=== PATIENT | female | born 1990 | race American Indian/Alaskan Native ===

== ENCOUNTER 2021-02-22 19:55 | Emergency (ER) | payer MEDICAID, OTHER ==
[2021-02-22 21:20] LABS: Basophils % (Auto) 0.4 % (0.0-1.8); Eosinophils # (Auto) 0.1 K/mm3 (0.0-0.4); Eosinophils % (Auto) 1.1 % (0.0-4.3); Hematocrit 39.9 % (30.3-42.9); Hemoglobin 13.8 gm/dl (10.1-14.3); Lymphocytes # (Auto) 3.1 K/mm3 (1.2-5.4); Lymphocytes % (Auto) 30.3 % (13.4-35.0); Mean Corpuscular HGB Conc 35 % (30-34); Mean Corpuscular Volume 94 fl (79-97); Monocytes # (Auto) 0.7 K/mm3 (0.0-0.8); Monocytes % (Auto) 6.8 % (0.0-7.3); Platelet Count 296 K/mm3 (140-440); Red Blood Count 4.23 M/mm3 (3.65-5.03); Red Cell Distribution Width 12.8 % (13.2-15.2)
[2021-02-22 21:33] LABS: Alanine Aminotransferase 14 units/L (7-56); Albumin 4.4 g/dL (3.9-5); Blood Urea Nitrogen 10 mg/dL (7-17); Calcium 9.3 mg/dL (8.4-10.2); Hemolysis Index 32
[2021-02-22 21:39] LABS: BUN/Creatinine Ratio 17
[2021-02-22 21:55] VITALS: BP 174/80
--- NOTE | 2021-02-22 22:00 | XRay Report ---
CHEST 2 VIEWS INDICATION / CLINICAL INFORMATION: Chest Pain. COMPARISON: None available. FINDINGS: SUPPORT DEVICES: None. HEART / MEDIASTINUM: No significant abnormality. LUNGS / PLEURA: No significant pulmonary or pleural abnormality. No pneumothorax. ADDITIONAL FINDINGS: No significant additional findings. IMPRESSION: 1. No acute cardiopulmonary abnormality. Signer Name: Donal Live MD Signed: 02/22/2021 9:55 PM Workstation Name: [id number]
[2021-02-22] MEDS ORDERED: CYCLOBENZAPRINE 10 MG TAB PO ONE (22:22)
[2021-02-22] MEDS ORDERED: IBUPROFEN 600 MG TAB PO ONE (22:22)
[2021-02-22] MEDS ORDERED: ACETAMINOPHEN 500 MG TAB PO ONE (22:22)
--- NOTE | 2021-02-22 22:47 | Emergency Department Report ---
ED General Adult HPI - General Chief complaint: Chest Pain Stated complaint: CHEST&BODYACHE,CHEST PRESSURE,SOB Source: patient Mode of arrival: Ambulatory Limitations: No Limitations - History of Present Illness Initial comments: Patient is a 30-year-old -[place] female with a history of anxiety presents to the ED with acute diffuse body aches and pains, back pain, neck pain, headache, diffuse chest wall pain, and dry cough for the last 1 week, worse in the last 2 days. Patient states that she has been taking [id number]-[id number] medications with no relief. Patient denies dizziness, syncope, shortness of breath, nausea, vomiting, seizures, nasal and sinus congestion, abdominal pain, dysuria, urinary frequency and urgency or change in vision. MD Complaint: back pain, neck pain and chest wall pain; anxiety -: Sudden, week(s) (1) Location: neck, chest, back Radiation: non-radiation Severity scale (0 -10): 8 Quality: aching, sharp Consistency: constant Improves with: none Worsens with: none Associated Symptoms: denies other symptoms, chest pain, cough. denies: confusion, diaphoresis, fever/chills, headaches, loss of appetite, nausea/vomiting, rash, seizure, shortness of breath, syncope, weakness Treatments Prior to Arrival: none - Related Data Previous Rx's Medication Instructions Recorded Last Taken Type Ondansetron [Zofran Odt] 4 mg SL Q4H PRN #20 tab.rapdis 01/15/16 Unknown Rx Vit No.130/Iron/Folic 1 each PO QDAY #30 tablet 07/04/16 Unknown Rx [ Tablet] Ibuprofen [Motrin 800 MG tab] 800 mg PO Q8HR PRN #30 tablet 03/02/17 Unknown Rx Lidocain2.5%/Prilocai2.5% [Emla] 2 gm TP ONCE #1 tube 03/02/17 Unknown Rx oxyCODONE /ACETAMINOPHEN [Percocet 1 tab PO Q4HR #30 tab 03/02/17 Unknown Rx 5/325] Baclofen 20 mg PO Q12H PRN #20 tablet 02/22/21 Unknown Rx Benzonatate [Tessalon Perles] 100 mg PO Q8HR #30 capsule 02/22/21 Unknown Rx Ibuprofen [Motrin] 800 mg PO Q8HR PRN #30 tablet 02/22/21 Unknown Rx hydrOXYzine PAMOATE [Vistaril] 25 mg PO Q6HR PRN #30 capsule 02/22/21 Unknown Rx Allergies Allergy/AdvReac Type Severity Reaction Status Date / Time No Known Allergies Allergy Verified 01/12/16 15:32 ED Review of Systems ROS: Stated complaint: CHEST&BODYACHE,CHEST PRESSURE,SOB Other details as noted in HPI Constitutional: denies: chills, fever Eyes: denies: eye pain, eye discharge, vision change ENT: congestion. denies: ear pain, throat pain Respiratory: cough. denies: shortness of breath, wheezing Cardiovascular: chest pain (Pleuritic chest pain). denies: palpitations Endocrine: no symptoms reported Gastrointestinal: denies: abdominal pain, nausea, vomiting, diarrhea Genitourinary: denies: urgency, dysuria, discharge Musculoskeletal: back pain, arthralgia, other. denies: joint swelling Skin: denies: rash, lesions Neurological: denies: headache, weakness, paresthesias Psychiatric: denies: anxiety, depression Hematological/Lymphatic: denies: easy bleeding, easy bruising ED Past Medical Hx - Past Medical History Hx Hypertension: No Hx Congestive Heart Failure: No Hx Diabetes: No Hx Deep Vein Thrombosis: No Hx Renal Disease: No Hx Sickle Cell Disease: No Hx Seizures: No Hx Asthma: No Hx COPD: No Hx HIV: No - Social History Smoking Status: Never Smoker - Medications Home Medications: Home Medications Medication Instructions Recorded Confirmed Last Taken Type Ondansetron [Zofran Odt] 4 mg SL Q4H PRN #20 tab.rapdis 01/15/16 03/02/17 Unknown Rx Vit No.130/Iron/Folic 1 each PO QDAY #30 tablet 07/04/16 03/02/17 Unknown Rx [ Tablet] Ibuprofen [Motrin 800 MG tab] 800 mg PO Q8HR PRN #30 tablet 03/02/17 Unknown Rx Lidocain2.5%/Prilocai2.5% [Emla] 2 gm TP ONCE #1 tube 03/02/17 Unknown Rx oxyCODONE /ACETAMINOPHEN [Percocet 1 tab PO Q4HR #30 tab 03/02/17 Unknown Rx 5/325] Baclofen 20 mg PO Q12H PRN #20 tablet 02/22/21 Unknown Rx Benzonatate [Tessalon Perles] 100 mg PO Q8HR #30 capsule 02/22/21 Unknown Rx Ibuprofen [Motrin] 800 mg PO Q8HR PRN #30 tablet 02/22/21 Unknown Rx hydrOXYzine PAMOATE [Vistaril] 25 mg PO Q6HR PRN #30 capsule 02/22/21 Unknown Rx ED Physical Exam - General Limitations: No Limitations General appearance: alert, in no apparent distress - Head Head exam: Present: atraumatic, normocephalic, normal inspection - Eye Eye exam: Present: normal appearance, PERRL, EOMI Pupils: Present: normal accommodation - ENT ENT exam: Present: normal exam, normal orophraynx, mucous membranes moist, TM's normal bilaterally, normal external ear exam - Neck Neck exam: Present: normal inspection, full ROM. Absent: tenderness, meningismus - Respiratory Respiratory exam: Present: normal lung sounds bilaterally, chest wall tenderness (Palpable reproducible diffuse chest wall tenderness). Absent: respiratory distress, wheezes, rales, rhonchi, accessory muscle use, decreased breath sounds, prolonged expiratory - Cardiovascular Cardiovascular Exam: Present: regular rate, normal rhythm, normal heart sounds. Absent: systolic murmur, diastolic murmur, rubs, gallop - GI/Abdominal GI/Abdominal exam: Present: soft, normal bowel sounds. Absent: tenderness, guarding, rebound, hyperactive bowel sounds, hypoactive bowel sounds, organomegaly - Extremities Exam Extremities exam: Present: normal inspection, full ROM, normal capillary refill - Back Exam Back exam: Present: normal inspection, full ROM, tenderness (Palpable paraspinal musculoskeletal tenderness), muscle spasm, paraspinal tenderness - Neurological Exam Neurological exam: Present: alert, oriented X3, CN II-XII intact, normal gait, reflexes normal - Psychiatric Psychiatric exam: Present: normal affect, normal mood, anxious - Skin Skin exam: Present: warm, dry, intact, normal color. Absent: rash ED Course Vital Signs 02/22/21 02/22/21 20:37 22:34 Temperature 98.3 F Pulse Rate 69 Respiratory 16 18 Rate Blood Pressure 174/80 O2 Sat by Pulse 100 Oximetry ED Medical Decision Making - Lab Data Result diagrams: 02/22/21 20:48 02/22/21 20:48 - Radiology Data Radiology results: report reviewed, image reviewed [facility] [address] [place] [address] XRay Report Signed Patient: MERT BAUTISTA MR#: [id number] : 1990 Acct:[id number] Age/Sex: 30 / F ADM Date: 02/22/21 Loc: ED Attending Dr: Ordering Physician: JAY THOMAS MD Date of Service: 02/22/21 Procedure(s): XR chest routine 2V Accession Number(s): [id number] cc: JAY THOMAS MD Fluoro Time In Minutes: CHEST 2 VIEWS INDICATION / CLINICAL INFORMATION: Chest Pain. COMPARISON: None available. FINDINGS: SUPPORT DEVICES: None. HEART / MEDIASTINUM: No significant abnormality. LUNGS / PLEURA: No significant pulmonary or pleural abnormality. No pneumothorax. ADDITIONAL FINDINGS: No significant additional findings. IMPRESSION: 1. No acute cardiopulmonary abnormality. Signer Name: Bar Live MD Signed: 02/22/2021 9:55 PM Workstation Name: [id number] Transcribed By: SS Dictated By: BAR LIVE Electronically Authenticated By: BAR LIVE Signed Date/Time: 02/22/212154 DD/ 54 TD/TT: Print - Medical Decision Making This is a 30-year-old -[place] female with a history of anxiety presents to the ED with acute diffuse body aches and pains, back pain, neck pain, headache, diffuse chest wall pain, and dry cough for the last 1 week, worse in the last 2 days. Patient states that she has been taking cvzq-vna-vyjffcz medications with no relief. In the ED, patient is alert and oriented x3 and is not in any distress. Chest x-ray shows no acute cardiopulmonary abnormalities or pneumonitis. Lab test results were reviewed and are all nonactionable. Based on the history and physical exam findings, the patient symptoms are likely due to anxiety versus URI versus bronchitis or muscle spasm. Patient was therefore discharged home on medications and advised to follow-up with her primary care physician in 5 to 7 days for reevaluation or return to the ED immediately if symptoms get worse. - Differential Diagnosis Bronchitis; anxiety; muscle spasm; URI; muscle strain Critical care attestation.: If time is entered above; I have spent that time in minutes in the direct care of this critically ill patient, excluding procedure time. ED Disposition Clinical Impression: Spasm of muscle of lower back, Cervical paraspinal muscle spasm, Anxiety as acute reaction to exceptional stress Acute bronchitis Qualifiers: Bronchitis organism: other organism Qualified Code(s): J20.8 - Acute bronchitis due to other specified organisms Disposition: DC- TO HOME OR SELFCARE Is pt being admited?: No Does the pt Need Aspirin: No Condition: Stable Instructions: Muscle Cramps and Spasms, [id number], Generalized Anxiety Disorder, Adult, Acute Bronchitis, Adult, [id number], Acute Bronchitis (ED) Additional Instructions: All lab test results were reviewed and are all nonactionable. Chest x-ray showed no acute cardiopulmonary abnormalities or pneumonitis. Therefore take medication with food, drink plenty of fluids and follow-up with your primary care physician in 7 to 10 days for reevaluation. Return to the ED immediately if symptoms get worse. Prescriptions: Baclofen 20 mg PO Q12H PRN #20 tablet PRN Reason: Muscle Spasm Ibuprofen [Motrin] 800 mg PO Q8HR PRN #30 tablet PRN Reason: Pain , Severe (7-10) Benzonatate [Tessalon Perles] 100 mg PO Q8HR #30 capsule hydrOXYzine PAMOATE [Vistaril] 25 mg PO Q6HR PRN #30 capsule PRN Reason: Anxiety Referrals: [facility] [Provider Group] - 3-5 Days Time of Disposition: 22:47 Print Language: MONEGASQUE
--- NOTE | 2021-02-24 14:03 | Electrocardiograph Report ---
Test Date: 2021-02-22 Test Time: 20:42:34 Pat Name: MERT BAUTISTA Department: Room: Gender: F [employer] In[employer]: MARYJO : 1990 Requested By: MARIBEL GONZALEZ Order Number: [id number] Reading MD: Shawn Quan Measurements Intervals [place] Rate: 58 P: 46 WA: 150 QRS: 28 QRSD: 83 T: 34 QT: 410 QTc: 403 Interpretive Statements Bradycardia with irregular rate No previous ECG available for comparison Electronically Signed On 02-24-2021 14:02:51 EDT by Shawn Quan
== END 2021-02-22 23:15 | disposition home or self-care (01) ==
LOC: ED 19:55
DX: J20.9 Acute bronchitis, unspecified (principal); M62.838 Other muscle spasm; M62.830 Muscle spasm of back; M54.2 Cervicalgia; M54.5 Low back pain; F41.9 Anxiety disorder, unspecified; Z79.899 Other long term (current) drug therapy
CPT/HCPCS: 36415; 71046; 80053; 84484; 85025; 93005; 99284